=== PATIENT | male | born 1980 | race Caucasian/White ===

== ENCOUNTER 2017-02-25 14:29 | Emergency (ER) | payer OTHER ==
[~2017-02-25] VITALS: Ht 180.3 cm; Wt 74.8 kg
[2017-02-25 15:04] VITALS: BP 140/92
[2017-02-25 15:18] LABS: ABSOLUTE BASOPHIL COUNT 0 /CUMM (0.0-0.2); ABSOLUTE EOSINOPHIL COUNT 0 /CUMM (0.0-0.7); ABSOLUTE LYMPH COUNT 2.9 /CUMM (1.2-3.4); ABSOLUTE MONOCYTE COUNT 0.4 /CUMM (0.10-0.60); BASOPHIL % 0.3 % (0.0-2.0); EOSINOPHIL % 0.1 % (0-5); GRANULOCYTE % 60.6 % (42.2-75.2); HEMATOCRIT 49.1 % (42-52); MEAN CORPUSCULAR HGB 30.2 PG (27.0-31.0); MEAN CORPUSCULAR HGB CONC 34.6 G/DL (33.0-37.0); MEAN CORPUSCULAR VOLUME 87.2 FL (80.0-94.0); MEAN PLATELET VOLUME 7.7 FL (7.4-10.4); PLATELET COUNT 289 /CUMM (130-400); RED BLOOD CELL CT 5.63 /CUMM (4.70-6.10); WHITE BLOOD CELL COUNT 8.3 /CUMM (4.8-10.8)
[2017-02-25] MEDS ORDERED: VITAMIN C500 M6 PO (16:06)
--- NOTE | 2017-02-25 16:29 | ED PSYCHIATRIC COMPLAINT ---
History of Present Illness General Chief Complaint: ETOH/Drug Related Complaint Stated Complaint: BIBA FOR ETOH Source: patient Exam Limitations: no limitations Vital Signs & Intake/Output Vital Signs & Intake/Output Vital Signs Date Time Temp Pulse Resp B/P B/P Pulse O2 O2 Flow FiO2 Mean Ox Delivery Rate 02/25 1557 Room Air 02/25 1504 98.0 134 18 140/92 96 Room Air Allergies Coded Allergies: No Known Allergies (02/25/17) Reconcile Medications Ascorbate Calcium (Vitamin C) (Unknown Strength) TABLET (Unknown Dose) PO DAILY SUPPLEMENT (Reported) Triage Note: 36 YEAR OLD MALE TO TRIAGE REQUESTING ETOH DETOX FOR THE PAST 6 YEARS, LAST DETOX 6 YEARS AGO. DENIES DRUG USE/SI/HI/ OR HISTORY OF SEIZURES. LAST DRINK AT 2 HOURS AGO Triage Nurses Notes Reviewed? yes Onset: Abrupt Duration: day(s): (1) Timing: recent history Severity: mild HPI: 36 year old male presents to the ER for request of alcohol detox. He states he has a history of previous detox 6 years ago. No history of seizures. Denies any drug use. Past History Travel History Traveled to [place] past 21 day No Medical History Any Pertinent Medical History? 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 No Review of Systems Review of Systems Constitutional: Denies: chills, fever. EENTM: Reports: no symptoms. Respiratory: Denies: cough, sputum production. Cardiovascular: Denies: chest pain, palpitations. GI: Denies: abdominal pain. Genitourinary: Reports: no symptoms. Musculoskeletal: Reports: no symptoms. Skin: Reports: no symptoms. Neurological/Psychological: Denies: anxiety, confusion, emotional problems. Hematologic/Endocrine: Denies: bruising, bleeding, polyuria, polydipsia. Immunologic/Allergic: Denies: splenectomy. All Other Systems: Reviewed and Negative Physical Exam Physical Exam General Appearance: well developed/nourished, mild distress Head: atraumatic Eyes: Bilateral: PERRL, EOMI. Ears, Nose, Throat: normal pharynx, normal ENT inspection, hearing grossly normal Neck: normal inspection, supple Respiratory: normal breath sounds Cardiovascular: regular rate/rhythm Gastrointestinal: soft, non-tender Extremities: normal range of motion Neurological/Psychiatric: no motor/sensory deficits, awake, alert, normal mood/ affect, calm Appearance/Memory/Insight: appropriate appearance, neat Behavoir/Eye Contact/Speech: cooperative, normal speech, good eye contact Thoughts/Hallucinations: no apparent hallucination Skin: intact, normal color, warm/dry SAD PERSONS Done? patient not suicidal Progress Differential Diagnosis: alcohol abuse, alcohol dependence Plan of Care: Orders Procedure Date/time Status Add-on Test (ER Only) 02/25 1628 Active EKG 02/25 1628 Active MAGNESIUM 02/25 1514 Complete URINE DRUG SCREEN FOR ER ONLY 02/25 1507 Complete ETHANOL 02/25 1507 Complete COMPREHENSIVE METABOLIC PANEL 02/25 1507 Complete CBC WITHOUT DIFFERENTIAL 02/25 1507 Complete Laboratory Tests 02/25/17 1636: Urine Opiates Screen < 100.00, Methadone Screen < 40, Barbiturate Screen < 60, Ur Phencyclidine Scrn < 6.00, Amphetamines Screen < 100, U Benzodiazepines Scrn < 85, Urine Cocaine Screen < 50, Urine Cannabis Screen < 5.00 02/25/17 1514: Anion Gap 17 H, Estimated GFR > 60, BUN/Creatinine Ratio 7.5, Glucose 118 H, Calcium 9.8, Magnesium 2.2, Total Bilirubin 1.0, AST 58, ALT 69, Alkaline Phosphatase 55, Total Protein 8.3 H, Albumin 5.3 H, Globulin 3.0, Albumin/ Globulin Ratio 1.8, CBC w Diff NO MAN DIFF REQ, RBC 5.63, MCV 87.2, MCH 30.2, RDW 13.0, MPV 7.7, Gran % 60.6, Lymphocytes % 34.5, Monocytes % 4.5, Eosinophils % 0.1, Basophils % 0.3, Absolute Granulocytes 5.0, Absolute Lymphocytes 2.9, Absolute Monocytes 0.4, Absolute Eosinophils 0, Absolute Basophils 0, PUBS MCHC 34.6, Serum Alcohol 381.0 5:25 PM PATIENT WANTS TO GO HOME. WILL CALL FOR A SOBER RIDE. 5:51 PM Patient has a sober ride coming to pick him up. He does not want to stay for evaluation for inpatient detox. He states he needs to be at work tomorrow morning at 7:30. I will give him a list for outpatient detox facilities follow- up. (MIKA ESTRADA,LISSETH) Departure Departure Time of Disposition: 1751 Disposition: HOME OR SELF CARE Condition: Stable Clinical Impression Primary Impression: Alcoholism Referrals: UNKNOWN (PCP/Family) Additional Instructions: Please follow up with a list of outpatient alcohol detox as directed. Return as needed. Departure Forms: Customer Survey General Discharge Information
== END 2017-02-25 18:48 ==
LOC: ERH 14:29
PROVIDERS: Emergency Medicine
DX: F10.20 Alcohol dependence, uncomplicated (principal)
CPT/HCPCS: 80307; G0480